=== PATIENT | male | born 1985 | race Caucasian/White ===

== ENCOUNTER 2017-03-07 01:40 | Emergency (ER) | payer SELFPAY ==
[2017-03-07] MEDS ORDERED: Bacitracin Oint 1 GM U/D Packet TOP ONE (02:12)
[2017-03-07] MEDS ORDERED: Cephalexin 500 MG Cap PO ONE (02:12)
[2017-03-07] MEDS ORDERED: Lidocaine 1% with EPINEPHrine 1:100,000 20 ML MDV INJECT ONE (02:13)
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
[2017-03-07 03:18] VITALS: BP 138/93
== END 2017-03-07 03:15 | disposition home or self-care (01) ==
LOC: MW.ED 01:40
DX: S81.012A Laceration without foreign body, left knee, initial encounter (principal); I10 Essential (primary) hypertension; W22.8XXA Striking against or struck by other objects, initial encounter
CPT/HCPCS: 12002; 99282; A9270; 99283